=== PATIENT | male | born 1965 | race Hispanic/Latino ===

== ENCOUNTER 2023-05-05 11:43 | Inpatient (IN) | payer SELFPAY ==
[2023-05-05] MEDS ORDERED: Iopamidol-370 76% 500 ML MDV (1 ML CHARGE) ONE (11:49)
[2023-05-05] MEDS ORDERED: Boostrix 0.5 ML (Tdap) VIAL (>/=7 yrs of age) ONE (13:30)
[2023-05-05] MEDS ORDERED: Piperacillin/Tazobactam 4.5 GM VIAL ONE (13:30)
[2023-05-05] MEDS ORDERED: Sodium Chloride 0.9% 0 ML ONE (13:31)
[2023-05-05 13:37] LABS: #Basophils 0.1 thou/uL (0.0-0.2); #Eosinphils 0.3 thou/uL (0.0-0.7); #Monocytes 1.1 thou/uL (0.11-0.59); #Neutrophils 12.9 thou/uL (1.40-6.50); %Basophils 0.6 % (0.0-1.0); %Eosinophils 1.9 % (0.0-10.0); %Lymphocytes 13.1 % (21.0-51.0); %Monocytes 6.5 % (0.0-10.0); %Neutrophils 77.5 % (42.0-75.0); Hematocrit 35.3 % (42.0-52.0); Mean Corpuscular Hemoglobin 29.9 pg (27.0-31.0); Mean Corpuscular Volume 87.8 fl (78.0-98.0); Mean Platelet Volume 11.6 fL (7.4-10.4); Platelet Count 352 10x3/uL (130-400); RBC Distribution Width 11.4 % (11.5-14.5); Red Blood Cell (RBC) Count 4.02 mill/uL (4.70-6.10); White Blood Cell (WBC) Count 16.7 10x3/uL (4.8-10.8)
[2023-05-05 14:01] LABS: ALT (SGPT) 21 U/L (8-55); AST (SGOT) 17 U/L (5-34); Albumin 3.5 g/dL (3.5-5.0); Alkaline Phosphatase 81 U/L (40-110); Anion Gap 16 mmol/L (10-20); BUN (Urea Nitrogen) 24 mg/dL (8.4-25.7); Bilirubin, Total 0.6 mg/dL (0.2-1.2); Calc. Creatinine Clearance 0 mL/min (70-130); Calcium 9.2 mg/dL (7.8-10.44); Carbon Dioxide 24 mmol/L (22-29); Chloride 99 mmol/L (98-107); Estimated GFR 47; Globulin 5.4 g/dL (2.4-3.5); Glucose 272 mg/dL (70-105); Potassium 3.6 mmol/L (3.5-5.1); Protein, Total 8.9 g/dL (6.0-8.3); Sodium 135 mmol/L (136-145)
[2023-05-05] MEDS ORDERED: Vancomycin 1 GM/200 ML (FROZEN) BAG ONE (14:01)
[2023-05-05] MEDS ORDERED: Ondansetron PF 4 MG/2 ML Vial IVP PRN (15:57)
[2023-05-05] MEDS ORDERED: Acetaminophen 325 MG TAB PO PRN (15:57)
[2023-05-05] MEDS ORDERED: Ondansetron ODT 4 MG TAB PO PRN (15:57)
[2023-05-05] MEDS ORDERED: Lorazepam 2 MG/ML VIAL IM PRN (16:00)
[2023-05-05] MEDS ORDERED: Electrolyte Replacement Protocol FS SCH (16:00)
[2023-05-05] MEDS ORDERED: Lorazepam 1 MG TAB PO PRN (16:00)
[2023-05-05] MEDS: Sodium Chloride 0.9% 1,000 ML IV SCH (17:32)
[2023-05-05 17:36] VITALS: BMI 31.4
[2023-05-05] MEDS: Thiamine HCl 200 MG/2 ML VIAL SLOW IVP SCH (17:52)
[2023-05-05 19:20] LABS: Magnesium 1.8 mg/dL (1.6-2.6); Phosphorus 3.2 mg/dL (2.3-4.7)
[2023-05-05 19:23] LABS: Hemoglobin A1c 8.5 % (4.0-6.0)
[2023-05-05 21:16] LABS: Amphetamine Not Detected (NotDetected); Barbiturates Screen Not Detected (NotDetected); Benzodiazepine Screen Not Detected (NotDetected); Cocaine Metabolite Screen Not Detected (NotDetected); Methadone Not Detected (NotDetected); Methamphetamine Not Detected (NotDetected); Opiate Screen Not Detected (NotDetected); Oxycodone Screen Not Detected (NotDetected); Phencyclidine (PCP) Not Detected (NotDetected); THC/Cannabinoid Screen Not Detected (NotDetected); Tricyclic Screen Not Detected (NotDetected)
[2023-05-06] MEDS: HYDROcodone/Acetaminophen 5/325 mg Tablet PO PRN ×2 (04:53→21:31)
[2023-05-06] MEDS: Sodium Chloride 0.9% 1,000 ML IV SCH ×3 (04:54→22:10)
[2023-05-06 05:48] LABS: #Basophils 0.1 thou/uL (0.0-0.2); #Eosinphils 0.4 thou/uL (0.0-0.7); #Neutrophils 8.5 thou/uL (1.40-6.50); %Basophils 0.8 % (0.0-1.0); %Eosinophils 3.4 % (0.0-10.0); %Neutrophils 68.3 % (42.0-75.0); Hematocrit 30.4 % (42.0-52.0); Hemoglobin 10.2 g/dL (14.0-18.0); Mean Corpuscular HGB CONC 33.6 g/dL (32.0-36.0); Mean Corpuscular Hemoglobin 29.9 pg (27.0-31.0); Mean Corpuscular Volume 89.1 fl (78.0-98.0); Mean Platelet Volume 12.6 fL (7.4-10.4); Platelet Count 305 10x3/uL (130-400); RBC Distribution Width 11.5 % (11.5-14.5); Red Blood Cell (RBC) Count 3.41 mill/uL (4.70-6.10); White Blood Cell (WBC) Count 12.5 10x3/uL (4.8-10.8)
[2023-05-06 06:09] LABS: Anion Gap 13 mmol/L (10-20); BUN (Urea Nitrogen) 21 mg/dL (8.4-25.7); Calc. Creatinine Clearance 95 mL/min (70-130); Calcium 8.5 mg/dL (7.8-10.44); Carbon Dioxide 25 mmol/L (22-29); Chloride 103 mmol/L (98-107); Estimated GFR 68; Glucose 255 mg/dL (70-105); Potassium 3.6 mmol/L (3.5-5.1); Sodium 137 mmol/L (136-145)
[2023-05-06] MEDS ORDERED: Dextrose 50% Abboject 50 ML SYRINGE SLOW IVP PRN (07:25)
[2023-05-06] MEDS ORDERED: Dextrose 5% in Water 1,000 ML IV PRN (07:25)
[2023-05-06] MEDS ORDERED: HumaLOG 300 UNITS/3 ML VIAL SC PRN (07:25)
[2023-05-06] MEDS ORDERED: Glucagon 1 MG/ML KIT IM PRN (07:25)
[2023-05-06] MEDS ORDERED: Magnesium 2 GM/50 ML(in water) 2 GM in Premix 1 BAG IVPB SCH (08:00)
[2023-05-06] MEDS: Folic Acid 1 MG TAB PO SCH (08:01)
[2023-05-06] MEDS: cefTRIAXone\\ROCEPHIN 2 GM in Sodium Chloride 0.9% 100 ML IVPB SCH (08:02)
[2023-05-06] MEDS: Multivit, Therapeutic 1 TAB PO SCH (08:02)
[2023-05-06] MEDS: Vancomycin (BATCH) 1.5 GM in Premix 1 BAG IVPB SCH ×2 (08:15→20:35)
[2023-05-06 12:34] LABS: Syphilis Antibody Nonreactive (Nonreactive); Syphilis Antibody Index 0.17 S/CO (<1.00 Non-Reactive)
[2023-05-06] MEDS: HumaLOG 300 UNITS/3 ML VIAL SC PRN ×2 (12:49→17:11)
[2023-05-06] MEDS ORDERED: Lorazepam 1 MG TAB PO PRN (16:00)
[2023-05-06] MEDS: Thiamine HCl 200 MG/2 ML VIAL SLOW IVP SCH (17:07)
[2023-05-07] MEDS: HYDROcodone/Acetaminophen 5/325 mg Tablet PO PRN (02:37)
[2023-05-07 07:15] LABS: #Basophils 0.1 thou/uL (0.0-0.2); #Eosinphils 0.5 thou/uL (0.0-0.7); #Monocytes 0.8 thou/uL (0.11-0.59); #Neutrophils 7.3 thou/uL (1.40-6.50); %Eosinophils 4.5 % (0.0-10.0); %Lymphocytes 21.5 % (21.0-51.0); %Monocytes 7.4 % (0.0-10.0); %Neutrophils 65.1 % (42.0-75.0); Hematocrit 31.8 % (42.0-52.0); Hemoglobin 10.5 g/dL (14.0-18.0); Mean Corpuscular Hemoglobin 29.3 pg (27.0-31.0); Mean Corpuscular Volume 88.8 fl (78.0-98.0); Platelet Count 335 10x3/uL (130-400); RBC Distribution Width 11.4 % (11.5-14.5); Red Blood Cell (RBC) Count 3.58 mill/uL (4.70-6.10); White Blood Cell (WBC) Count 11.2 10x3/uL (4.8-10.8)
[2023-05-07 07:37] LABS: Anion Gap 12 mmol/L (10-20); BUN (Urea Nitrogen) 17 mg/dL (8.4-25.7); Calc. Creatinine Clearance 117 mL/min (70-130); Calcium 8.7 mg/dL (7.8-10.44); Carbon Dioxide 26 mmol/L (22-29); Chloride 103 mmol/L (98-107); Estimated GFR 87; Glucose 199 mg/dL (70-105); Potassium 3.8 mmol/L (3.5-5.1); Sodium 137 mmol/L (136-145)
[2023-05-07] MEDS: Folic Acid 1 MG TAB PO SCH (09:47)
[2023-05-07] MEDS: cefTRIAXone\\ROCEPHIN 2 GM in Sodium Chloride 0.9% 100 ML IVPB SCH (09:47)
[2023-05-07] MEDS: Multivit, Therapeutic 1 TAB PO SCH (09:47)
[2023-05-07] MEDS: Vancomycin (BATCH) 1.5 GM in Premix 1 BAG IVPB SCH (11:48)
[2023-05-07] MEDS: HumaLOG 300 UNITS/3 ML VIAL SC PRN (11:49)
[2023-05-07] MEDS ORDERED: Amlodipine 10 MG TAB PO SCH (12:15)
[2023-05-07 13:12] VITALS: BP 179/100; TEMP 98.8
[2023-05-07] MEDS ORDERED: Lorazepam 1 MG TAB PO PRN (16:00)
[2023-05-08] MEDS ORDERED: Lorazepam 0.5 MG TAB PO PRN (16:00)
[2023-05-08] MEDS ORDERED: Thiamine 100 MG TAB PO SCH (17:00)
== END 2023-05-07 15:04 | disposition home or self-care (01) | DRG 872 ==
LOC: ERS 11:43 → T4-B 17:20
PROVIDERS: ADMIT Internal Medicine; ATTEND Internal Medicine
DX: A41.9 Sepsis, unspecified organism (principal); N17.9 Acute kidney failure, unspecified; L03.115 Cellulitis of right lower limb; I10 Essential (primary) hypertension
CPT/HCPCS: 36415; 36416; 80048; 80053; 80306; 83036; 83605; 83735; 84100; 85025; 86140; 86780; 87040; 90715; J0696; J1650; J1815; J2543; J3370; J3370-JW; J3411; J3475; J3490; J7050; Q9967

== ENCOUNTER 2023-05-24 09:22 | Inpatient (IN) | payer SELFPAY ==
[2023-05-24] MEDS ORDERED: Morphine 4 MG/ML VIAL ONE (11:01)
[2023-05-24] MEDS ORDERED: Cefepime 2 GM VIAL ONE (11:01)
[2023-05-24] MEDS ORDERED: Ondansetron PF 4 MG/2 ML Vial ONE (11:01)
[2023-05-24] MEDS ORDERED: Sodium Chloride 0.9% 100 ML ONE (11:02)
[2023-05-24 11:04] LABS: #Basophils 0.1 thou/uL (0.0-0.2); #Eosinphils 0.6 thou/uL (0.0-0.7); #Monocytes 0.5 thou/uL (0.11-0.59); #Neutrophils 4.4 thou/uL (1.40-6.50); %Basophils 1.5 % (0.0-1.0); %Eosinophils 8.6 % (0.0-10.0); %Lymphocytes 20.9 % (21.0-51.0); %Monocytes 7.5 % (0.0-10.0); %Neutrophils 61.2 % (42.0-75.0); Hematocrit 36.9 % (42.0-52.0); Hemoglobin 12.5 g/dL (14.0-18.0); Mean Corpuscular HGB CONC 33.9 g/dL (32.0-36.0); Mean Corpuscular Hemoglobin 28.9 pg (27.0-31.0); Mean Corpuscular Volume 85.4 fl (78.0-98.0); Mean Platelet Volume 11.7 fL (7.4-10.4); Platelet Count 321 10x3/uL (130-400); RBC Distribution Width 11.7 % (11.5-14.5); Red Blood Cell (RBC) Count 4.32 mill/uL (4.70-6.10); White Blood Cell (WBC) Count 7.2 10x3/uL (4.8-10.8)
[2023-05-24 11:32] LABS: ALT (SGPT) 11 U/L (8-55); AST (SGOT) 12 U/L (5-34); Albumin 3.4 g/dL (3.5-5.0); Alkaline Phosphatase 72 U/L (40-110); Anion Gap 12 mmol/L (10-20); BUN (Urea Nitrogen) 25 mg/dL (8.4-25.7); Bilirubin, Total 0.6 mg/dL (0.2-1.2); Calc. Creatinine Clearance 0 mL/min (70-130); Calcium 9.6 mg/dL (7.8-10.44); Carbon Dioxide 26 mmol/L (22-29); Chloride 101 mmol/L (98-107); Estimated GFR 44; Globulin 5.2 g/dL (2.4-3.5); Glucose 314 mg/dL (70-105); Potassium 4.2 mmol/L (3.5-5.1); Protein, Total 8.6 g/dL (6.0-8.3); Sodium 135 mmol/L (136-145)
[2023-05-24] MEDS ORDERED: Vancomycin (BATCH) 2 GM in Premix 1 BAG IVPB SCH (12:30)
[2023-05-24] MEDS ORDERED: Ondansetron PF 4 MG/2 ML Vial IVP PRN (14:51)
[2023-05-24] MEDS ORDERED: Acetaminophen 325 MG TAB PO PRN (14:51)
[2023-05-24] MEDS ORDERED: Dextrose 50% Abboject 50 ML SYRINGE SLOW IVP PRN (14:51)
[2023-05-24] MEDS ORDERED: Ondansetron ODT 4 MG TAB PO PRN (14:51)
[2023-05-24] MEDS ORDERED: Dextrose 5% in Water 1,000 ML IV PRN (14:51)
[2023-05-24] MEDS ORDERED: Glucagon 1 MG/ML KIT IM PRN (14:51)
[2023-05-24] MEDS ORDERED: Morphine 4 MG/ML VIAL SLOW IVP PRN (14:54)
[2023-05-24] MEDS ORDERED: Sodium Chloride 0.9% 1,000 ML IV SCH ×2 (15:00→16:21)
[2023-05-24 15:49] VITALS: BMI 31.5
[2023-05-24] MEDS: Heparin 5,000 UNITS/ML VIAL SC SCH ×2 (16:30→21:51)
[2023-05-24] MEDS ORDERED: Piperacillin/Tazobactam 3.375 GM in Sodium Chloride 0.9% 100 ML IVPB SCH (19:00)
[2023-05-24] MEDS: Sodium Chloride 0.9% 1,000 ML IV SCH (19:01)
[2023-05-24] MEDS ORDERED: Amlodipine 5 MG TAB PO SCH (21:00)
[2023-05-24] MEDS: HumaLOG 300 UNITS/3 ML VIAL SC PRN (22:03)
[2023-05-25] MEDS: Piperacillin/Tazobactam 3.375 GM in Sodium Chloride 0.9% 100 ML IVPB SCH ×4 (00:33→23:54)
[2023-05-25 05:08] LABS: #Basophils 0.1 thou/uL (0.0-0.2); #Eosinphils 1.3 thou/uL (0.0-0.7); #Monocytes 0.6 thou/uL (0.11-0.59); #Neutrophils 3.8 thou/uL (1.40-6.50); %Basophils 1.6 % (0.0-1.0); %Eosinophils 16.8 % (0.0-10.0); %Lymphocytes 24.7 % (21.0-51.0); %Neutrophils 48.6 % (42.0-75.0); Hematocrit 31.5 % (42.0-52.0); Hemoglobin 10.6 g/dL (14.0-18.0); Mean Corpuscular HGB CONC 33.7 g/dL (32.0-36.0); Mean Corpuscular Hemoglobin 28.8 pg (27.0-31.0); Mean Corpuscular Volume 85.6 fl (78.0-98.0); Mean Platelet Volume 12.2 fL (7.4-10.4); Platelet Count 312 10x3/uL (130-400); RBC Distribution Width 11.8 % (11.5-14.5); Red Blood Cell (RBC) Count 3.68 mill/uL (4.70-6.10); White Blood Cell (WBC) Count 7.7 10x3/uL (4.8-10.8)
[2023-05-25 05:36] LABS: Anion Gap 12 mmol/L (10-20); BUN (Urea Nitrogen) 20 mg/dL (8.4-25.7); Calc. Creatinine Clearance 88 mL/min (70-130); Calcium 8.8 mg/dL (7.8-10.44); Carbon Dioxide 24 mmol/L (22-29); Chloride 105 mmol/L (98-107); Estimated GFR 63; Glucose 205 mg/dL (70-105); Potassium 3.6 mmol/L (3.5-5.1); Sodium 137 mmol/L (136-145)
[2023-05-25] MEDS ORDERED: PROPOFOL 200 MG/20 ML VIAL ONE (06:28)
[2023-05-25] MEDS ORDERED: PHENYLEPHRINE-NS 100 MCG/ML 10 ML SYRINGE ONE ×2 (06:28→07:55)
[2023-05-25] MEDS ORDERED: diphenhydrAMINE 50 MG/ML VIAL ONE ×2 (06:28→07:50)
[2023-05-25] MEDS ORDERED: Ondansetron PF 4 MG/2 ML Vial ONE ×2 (06:28→07:50)
[2023-05-25] MEDS ORDERED: Piperacillin/Tazobactam 3.375 GM VIAL ONE (07:04)
[2023-05-25] MEDS ORDERED: Vasopressin 20 UNITS/ML VIAL ONE (07:04)
[2023-05-25] MEDS ORDERED: Sodium Chloride 0.9% 100 ML ONE (07:04)
[2023-05-25] MEDS ORDERED: Insulin Regular 300 UNITS/3 ML VIAL ONE (07:09)
[2023-05-25] MEDS ORDERED: Fentanyl 250 MCG/5 ML VIAL ONE (07:15)
[2023-05-25] MEDS ORDERED: PROPOFOL 20 ML ONE (07:16)
[2023-05-25] MEDS ORDERED: Midazolam HCl 2 mg/2 ml Vial ONE (07:18)
[2023-05-25] MEDS ORDERED: Promethazine HCl 25 MG/ML VIAL IM PRN (09:00)
[2023-05-25] MEDS ORDERED: Ondansetron HCl/PF 4 MG/2 ML Vial IVP PRN (09:00)
[2023-05-25] MEDS: Sodium Chloride 0.9% 1,000 ML IV SCH (09:42)
[2023-05-25] MEDS: Heparin 5,000 UNITS/ML VIAL SC SCH (09:43)
[2023-05-25] MEDS ORDERED: Fentanyl 100 MCG/2 ML VIAL SLOW IVP PRN (10:55)
[2023-05-25] MEDS ORDERED: HYDROcodone/Acetaminophen 5/325 mg Tablet PO PRN (10:55)
[2023-05-25] MEDS ORDERED: fentaNYL 50 mcg/mL 1 mL Vial SLOW IVP PRN (10:58)
[2023-05-25] MEDS: HYDROcodone/Acetaminophen 5/325 mg Tablet PO PRN ×2 (12:06→22:01)
[2023-05-25] MEDS: Vancomycin (BATCH) 1.5 GM in Premix 1 BAG IVPB SCH (14:36)
[2023-05-25] MEDS: HumaLOG 300 UNITS/3 ML VIAL SC PRN (22:03)
[2023-05-26] MEDS: Vancomycin (BATCH) 1.5 GM in Premix 1 BAG IVPB SCH ×2 (04:23→16:52)
[2023-05-26] MEDS: HumaLOG 300 UNITS/3 ML VIAL SC PRN ×3 (05:53→17:29)
[2023-05-26 06:14] LABS: #Basophils 0.1 thou/uL (0.0-0.2); #Eosinphils 1.1 thou/uL (0.0-0.7); #Monocytes 0.7 thou/uL (0.11-0.59); #Neutrophils 3.3 thou/uL (1.40-6.50); %Basophils 1.3 % (0.0-1.0); %Eosinophils 16.3 % (0.0-10.0); %Lymphocytes 22.4 % (21.0-51.0); %Monocytes 10.5 % (0.0-10.0); %Neutrophils 49.4 % (42.0-75.0); Hematocrit 29.8 % (42.0-52.0); Hemoglobin 9.9 g/dL (14.0-18.0); Mean Corpuscular HGB CONC 33.2 g/dL (32.0-36.0); Mean Corpuscular Hemoglobin 28.8 pg (27.0-31.0); Mean Corpuscular Volume 86.6 fl (78.0-98.0); Mean Platelet Volume 12.1 fL (7.4-10.4); Platelet Count 274 10x3/uL (130-400); RBC Distribution Width 11.8 % (11.5-14.5); Red Blood Cell (RBC) Count 3.44 mill/uL (4.70-6.10); White Blood Cell (WBC) Count 6.7 10x3/uL (4.8-10.8)
[2023-05-26 06:35] LABS: Anion Gap 9 mmol/L (10-20); BUN (Urea Nitrogen) 18 mg/dL (8.4-25.7); Calc. Creatinine Clearance 76 mL/min (70-130); Calcium 8.5 mg/dL (7.8-10.44); Carbon Dioxide 26 mmol/L (22-29); Chloride 106 mmol/L (98-107); Estimated GFR 53; Glucose 230 mg/dL (70-105); Potassium 3.6 mmol/L (3.5-5.1); Sodium 137 mmol/L (136-145)
[2023-05-26] MEDS: Piperacillin/Tazobactam 3.375 GM in Sodium Chloride 0.9% 100 ML IVPB SCH ×2 (08:34→17:05)
[2023-05-26] MEDS ORDERED: Amlodipine 5 MG TAB PO SCH (12:45)
[2023-05-26] MEDS: HYDROcodone/Acetaminophen 5/325 mg Tablet PO PRN (13:03)
[2023-05-26] MEDS: glipiZIDE 5 MG TAB PO SCH (16:52)
[2023-05-26] MEDS ORDERED: Insulin Glargine 30 UNITS/0.3 ML VIAL SC SCH (21:00)
[2023-05-26] MEDS: Insulin Glargine 30 UNITS/0.3 ML VIAL SC SCH (21:19)
[2023-05-27] MEDS: Piperacillin/Tazobactam 3.375 GM in Sodium Chloride 0.9% 100 ML IVPB SCH ×3 (01:00→16:33)
[2023-05-27 02:23] LABS: #Basophils 0.1 thou/uL (0.0-0.2); #Eosinphils 1.2 thou/uL (0.0-0.7); #Monocytes 0.7 thou/uL (0.11-0.59); %Basophils 1.2 % (0.0-1.0); %Eosinophils 16.7 % (0.0-10.0); %Lymphocytes 32.7 % (21.0-51.0); %Monocytes 9.4 % (0.0-10.0); %Neutrophils 39.9 % (42.0-75.0); Hematocrit 30.2 % (42.0-52.0); Hemoglobin 10.2 g/dL (14.0-18.0); Mean Corpuscular HGB CONC 33.8 g/dL (32.0-36.0); Mean Corpuscular Hemoglobin 28.7 pg (27.0-31.0); Mean Corpuscular Volume 84.8 fl (78.0-98.0); Platelet Count 256 10x3/uL (130-400); RBC Distribution Width 11.7 % (11.5-14.5); Red Blood Cell (RBC) Count 3.56 mill/uL (4.70-6.10); White Blood Cell (WBC) Count 7.4 10x3/uL (4.8-10.8)
[2023-05-27 02:43] LABS: Vancomycin, Trough 22.3 ug/mL
[2023-05-27 02:50] LABS: Hemoglobin A1c 11.1 % (4.0-6.0)
[2023-05-27 02:53] LABS: Anion Gap 12 mmol/L (10-20); BUN (Urea Nitrogen) 13 mg/dL (8.4-25.7); Calc. Creatinine Clearance 92 mL/min (70-130); Calcium 8.8 mg/dL (7.8-10.44); Carbon Dioxide 23 mmol/L (22-29); Chloride 105 mmol/L (98-107); Estimated GFR 67; Glucose 115 mg/dL (70-105); Potassium 3.3 mmol/L (3.5-5.1); Sodium 137 mmol/L (136-145)
[2023-05-27] MEDS: Vancomycin (BATCH) 1.5 GM in Premix 1 BAG IVPB SCH (04:47)
[2023-05-27] MEDS ORDERED: Potassium Chloride 20 MEQ TAB PO SCH (08:15)
[2023-05-27] MEDS: Amlodipine 5 MG TAB PO SCH (08:17)
[2023-05-27] MEDS: glipiZIDE 5 MG TAB PO SCH ×2 (08:17→16:33)
[2023-05-27] MEDS ORDERED: FLU VACC QS2023-24(6MOS UP)/PF 60 MCG/0.5 ML SYRINGE IM ONE (09:00)
[2023-05-27] MEDS: metFORMIN 500 MG TAB PO SCH (16:33)
[2023-05-27] MEDS: Insulin Glargine 30 UNITS/0.3 ML VIAL SC SCH (21:55)
[2023-05-27] MEDS: HumaLOG 300 UNITS/3 ML VIAL SC PRN (21:56)
[2023-05-28] MEDS: Piperacillin/Tazobactam 3.375 GM in Sodium Chloride 0.9% 100 ML IVPB SCH ×4 (00:23→23:35)
[2023-05-28] MEDS: glipiZIDE 5 MG TAB PO SCH ×2 (07:02→17:05)
[2023-05-28] MEDS: Amlodipine 5 MG TAB PO SCH (08:10)
[2023-05-28] MEDS: metFORMIN 500 MG TAB PO SCH ×2 (08:10→17:05)
[2023-05-28 09:08] LABS: Anion Gap 12 mmol/L (10-20); BUN (Urea Nitrogen) 17 mg/dL (8.4-25.7); Calc. Creatinine Clearance 79 mL/min (70-130); Calcium 9.1 mg/dL (7.8-10.44); Carbon Dioxide 25 mmol/L (22-29); Chloride 104 mmol/L (98-107); Estimated GFR 56; Glucose 202 mg/dL (70-105); Potassium 3.5 mmol/L (3.5-5.1); Sodium 137 mmol/L (136-145)
[2023-05-28] MEDS ORDERED: Amlodipine 5 MG TAB PO SCH (11:45)
[2023-05-28] MEDS: HumaLOG 300 UNITS/3 ML VIAL SC PRN (12:25)
[2023-05-28] MEDS: Insulin Glargine 30 UNITS/0.3 ML VIAL SC SCH (21:26)
[2023-05-29 05:42] LABS: Anion Gap 11 mmol/L (10-20); BUN (Urea Nitrogen) 16 mg/dL (8.4-25.7); Calc. Creatinine Clearance 75 mL/min (70-130); Calcium 9.4 mg/dL (7.8-10.44); Carbon Dioxide 26 mmol/L (22-29); Chloride 107 mmol/L (98-107); Estimated GFR 53; Glucose 90 mg/dL (70-105); Potassium 3.4 mmol/L (3.5-5.1); Sodium 141 mmol/L (136-145)
[2023-05-29] MEDS: Piperacillin/Tazobactam 3.375 GM in Sodium Chloride 0.9% 100 ML IVPB SCH ×2 (07:13→17:23)
[2023-05-29] MEDS: glipiZIDE 5 MG TAB PO SCH ×2 (07:13→17:27)
[2023-05-29] MEDS ORDERED: Potassium Chloride 20 MEQ TAB PO SCH (08:00)
[2023-05-29] MEDS ORDERED: Metoprolol Tartrate 25 MG TAB PO SCH (09:00)
[2023-05-29] MEDS ORDERED: Amlodipine 10 MG TAB PO SCH (09:00)
[2023-05-29] MEDS: HumaLOG 300 UNITS/3 ML VIAL SC PRN (12:19)
[2023-05-29 17:40] VITALS: BP 157/97; TEMP 98.4
== END 2023-05-29 20:30 | disposition home or self-care (01) | DRG 240 ==
LOC: ERS 09:22 → MSONC 13:33
PROVIDERS: ADMIT Hospitalist; ATTEND Family Medicine
PROC: 0Y6T0Z0 Detachment at Right 3rd Toe, Complete, Open Approach (ICD-10-PCS; principal; 2023-05-25)
PROC: 0Y6M0ZD Detachment at Right Foot, Partial 4th Ray, Open Approach (ICD-10-PCS; 2023-05-25)
PROC: 0Y6V0Z0 Detachment at Right 4th Toe, Complete, Open Approach (ICD-10-PCS; 2023-05-25)
PROC: 3E033XZ Introduction of Vasopressor into Peripheral Vein, Percutaneous Approach (ICD-10-PCS; 2023-05-25)
DX: E11.52 Type 2 diabetes mellitus with diabetic peripheral angiopathy with gangrene (principal); L02.611 Cutaneous abscess of right foot; L03.115 Cellulitis of right lower limb; M86.171 Other acute osteomyelitis, right ankle and foot; N17.9 Acute kidney failure, unspecified; E11.69 Type 2 diabetes mellitus with other specified complication; D64.9 Anemia, unspecified; I10 Essential (primary) hypertension
CPT/HCPCS: 36415; 36416; 80048; 80053; 80202; 83036; 83605; 85025; 86140; 87040; 87070; 87077; 87149; 87186; 87205; 88305; 88311; 93005; 93010; 93306; 96365; 96375; 97139; C1713; J0692; J1200; J1644; J1815; J2250; J2270; J2405; J2543; J2704; J3010; J3370; J3490; J7050